=== PATIENT | male | born 1960 | race Caucasian/White ===

== ENCOUNTER → 2016-11-30 | Outpatient (CLI) | payer OTHER | END | disposition home or self-care (01) | LOC: ECT 10:57 | DX: F31.4 Bipolar disorder, current episode depressed, severe, without psychotic features (principal); I10 Essential (primary) hypertension; E78.5 Hyperlipidemia, unspecified; K22.70 Barrett's esophagus without dysplasia; M79.7 Fibromyalgia; N40.0 Benign prostatic hyperplasia without lower urinary tract symptoms; J30.9 Allergic rhinitis, unspecified; I70.0 Atherosclerosis of aorta; J45.909 Unspecified asthma, uncomplicated; I87.2 Venous insufficiency (chronic) (peripheral); M54.17 Radiculopathy, lumbosacral region; M50.30 Other cervical disc degeneration, unspecified cervical region; E03.9 Hypothyroidism, unspecified; E11.40 Type 2 diabetes mellitus with diabetic neuropathy, unspecified; Z79.82 Long term (current) use of aspirin ==

== ENCOUNTER 2016-12-02 09:35 | Outpatient (RCR) | payer OTHER ==
[~2016-12-02] VITALS: Ht 180.3 cm; Wt 69.9 kg
[~2016-12-02 09:35] MED LIST: Excedrin Migraine tab ORAL PRN
[2016-12-02] MEDS ORDERED: Methohexital Sodium Syr 100mg/10ml IVP ONE ×2 (09:36)
[2016-12-02] MEDS ORDERED: NS 550ML IV ONE ×2 (09:36)
[2016-12-02] MEDS ORDERED: Succinylcholine 20mg/ml 10ml vial ONE ×2 (09:36)
[2016-12-02] MEDS ORDERED: Midazolam 2mg/2ml Inj ONE ×2 (09:36)
[2016-12-02] MEDS ORDERED: Excedrin Migraine tab ONE ×2 (09:36)
== END 2016-12-06 | disposition home or self-care (01) ==
LOC: ECT 09:35
DX: F31.4 Bipolar disorder, current episode depressed, severe, without psychotic features (principal); I10 Essential (primary) hypertension; E11.9 Type 2 diabetes mellitus without complications; M79.7 Fibromyalgia; M54.17 Radiculopathy, lumbosacral region; M50.30 Other cervical disc degeneration, unspecified cervical region
CPT/HCPCS: 90870; J0330; J2250; J7040

== ENCOUNTER 2016-12-07 06:06 | Outpatient (RCR) | payer OTHER ==
[~2016-12-07] VITALS: Ht 180.3 cm; Wt 69.9 kg
[2016-12-07] MEDS ORDERED: Succinylcholine 20mg/ml 10ml vial ONE (06:07)
[2016-12-07] MEDS ORDERED: NS 550ML IV ONE (06:07)
[2016-12-07] MEDS ORDERED: Midazolam 2mg/2ml Inj ONE (06:07)
[2016-12-07] MEDS ORDERED: Methohexital Sodium Syr 100mg/10ml IVP ONE (06:07)
[2016-12-07] MEDS ORDERED: Excedrin Migraine tab ONE (06:07)
[2016-12-07] MEDS ORDERED: Atropine Sulfate 0.4mg/ml inj IVP PRN (09:03)
[2016-12-07] MEDS ORDERED: Excedrin Migraine tab ORAL PRN (09:03)
[2016-12-09] MEDS ORDERED: Methohexital Sodium Syr 100mg/10ml IVP ONE (06:07)
[2016-12-09] MEDS ORDERED: Midazolam 2mg/2ml Inj ONE (06:07)
[2016-12-09] MEDS ORDERED: NS 550ML IV ONE (06:07)
[2016-12-09] MEDS ORDERED: Excedrin Migraine tab ONE (06:07)
[2016-12-09] MEDS ORDERED: Succinylcholine 20mg/ml 10ml vial ONE (06:07)
[2016-12-12] MEDS ORDERED: Excedrin Migraine tab ORAL PRN (09:43)
[2016-12-12] MEDS ORDERED: Methohexital Sodium Syr 100mg/10ml IVP ONE (12:00)
[2016-12-12] MEDS ORDERED: Excedrin Migraine tab ONE (12:00)
[2016-12-12] MEDS ORDERED: Succinylcholine 20mg/ml 10ml vial ONE (12:00)
[2016-12-12] MEDS ORDERED: NS 550ML IV ONE (12:00)
[2016-12-12] MEDS ORDERED: Midazolam 2mg/2ml Inj ONE (12:00)
[2016-12-14] MEDS ORDERED: Midazolam 2mg/2ml Inj ONE (08:00)
[2016-12-14] MEDS ORDERED: Methohexital Sodium Syr 100mg/10ml IVP ONE (08:00)
[2016-12-14] MEDS ORDERED: Succinylcholine 20mg/ml 10ml vial ONE (08:00)
[2016-12-14] MEDS ORDERED: NS 550ML IV ONE (08:00)
[2016-12-14] MEDS ORDERED: Excedrin Migraine tab ONE (08:00)
[2016-12-14] MEDS ORDERED: Excedrin Migraine tab ORAL PRN (09:54)
[2016-12-16] MEDS ORDERED: Excedrin Migraine tab ONE (08:00)
[2016-12-16] MEDS ORDERED: Midazolam 2mg/2ml Inj ONE (08:00)
[2016-12-16] MEDS ORDERED: Succinylcholine 20mg/ml 10ml vial ONE (08:00)
[2016-12-16] MEDS ORDERED: NS 550ML IV ONE (08:00)
[2016-12-16] MEDS ORDERED: Methohexital Sodium Syr 100mg/10ml IVP ONE (08:00)
[2016-12-16] MEDS ORDERED: Excedrin Migraine tab ORAL PRN (12:30)
[2016-12-19] MEDS ORDERED: NS 550ML IV ONE (08:00)
[2016-12-19] MEDS ORDERED: Succinylcholine 20mg/ml 10ml vial ONE (08:00)
[2016-12-19] MEDS ORDERED: Excedrin Migraine tab ONE (08:00)
[2016-12-19] MEDS ORDERED: Methohexital Sodium Syr 100mg/10ml IVP ONE (08:00)
[2016-12-19] MEDS ORDERED: Midazolam 2mg/2ml Inj ONE (08:00)
[2016-12-19] MEDS ORDERED: Atropine Sulfate 0.4mg/ml inj IVP PRN (12:30)
[2016-12-21] MEDS ORDERED: Succinylcholine 20mg/ml 10ml vial ONE (12:30)
[2016-12-21] MEDS ORDERED: Methohexital Sodium Syr 100mg/10ml IVP ONE (12:30)
[2016-12-21] MEDS ORDERED: Midazolam 2mg/2ml Inj ONE (12:30)
[2016-12-21] MEDS ORDERED: NS 550ML IV ONE (12:30)
[2016-12-21] MEDS ORDERED: Excedrin Migraine tab ONE (12:30)
[2016-12-21] MEDS ORDERED: Atropine Sulfate 0.4mg/ml inj IVP PRN (17:30)
[2016-12-21] MEDS ORDERED: Excedrin Migraine tab ORAL PRN (17:30)
[2016-12-23] MEDS ORDERED: Methohexital Sodium Syr 100mg/10ml IVP ONE (12:30)
[2016-12-23] MEDS ORDERED: NS 550ML IV ONE (12:30)
[2016-12-23] MEDS ORDERED: Excedrin Migraine tab ONE (12:30)
[2016-12-23] MEDS ORDERED: Midazolam 2mg/2ml Inj ONE (12:30)
[2016-12-23] MEDS ORDERED: Succinylcholine 20mg/ml 10ml vial ONE (12:30)
[2016-12-26] MEDS ORDERED: Succinylcholine 20mg/ml 10ml vial ONE (06:07)
[2016-12-26] MEDS ORDERED: Midazolam 2mg/2ml Inj ONE (06:07)
[2016-12-26] MEDS ORDERED: NS 550ML IV ONE (06:07)
[2016-12-26] MEDS ORDERED: Excedrin Migraine tab ONE (06:07)
[2016-12-26] MEDS ORDERED: Methohexital Sodium Syr 100mg/10ml IVP ONE (06:07)
[2016-12-26] MEDS ORDERED: Excedrin Migraine tab ORAL PRN (09:29)
[2017-01-02] MEDS ORDERED: Excedrin Migraine tab ORAL PRN (06:00)
[2017-01-02] MEDS ORDERED: Methohexital Sodium Syr 100mg/10ml IVP ONE (12:00)
[2017-01-02] MEDS ORDERED: Midazolam 2mg/2ml Inj ONE (12:00)
[2017-01-02] MEDS ORDERED: Succinylcholine 20mg/ml 10ml vial ONE (12:00)
[2017-01-02] MEDS ORDERED: Excedrin Migraine tab ONE (12:00)
[2017-01-02] MEDS ORDERED: NS 550ML IV ONE (12:00)
== END 2017-01-03 | disposition home or self-care (01) ==
LOC: ECT 06:06
DX: F31.4 Bipolar disorder, current episode depressed, severe, without psychotic features (principal)
CPT/HCPCS: 90870; J0330; J2250; J7040

== ENCOUNTER 2017-01-16 08:41 | Outpatient (RCR) | payer OTHER ==
[~2017-01-16] VITALS: Ht 180.3 cm; Wt 69.9 kg
[2017-01-16] MEDS ORDERED: Midazolam 2mg/2ml Inj ONE (08:42)
[2017-01-16] MEDS ORDERED: Excedrin Migraine tab ONE (08:42)
[2017-01-16] MEDS ORDERED: Methohexital Sodium Syr 100mg/10ml IVP ONE (08:42)
[2017-01-16] MEDS ORDERED: NS 550ML IV ONE (08:42)
[2017-01-16] MEDS ORDERED: Succinylcholine 20mg/ml 10ml vial ONE (08:42)
[2017-01-16] MEDS ORDERED: Excedrin Migraine tab ORAL PRN ×2 (09:03→15:30)
== END 2017-02-03 | disposition home or self-care (01) ==
LOC: ECT 08:41
DX: F31.4 Bipolar disorder, current episode depressed, severe, without psychotic features (principal)
CPT/HCPCS: 90870; J0330; J2250; J7040

== ENCOUNTER 2017-02-06 08:36 | Outpatient (RCR) | payer MEDICARE, OTHER ==
[~2017-02-06] VITALS: Ht 180.3 cm; Wt 69.9 kg
[2017-02-06] MEDS ORDERED: Methohexital Sodium Syr 100mg/10ml IVP ONE (08:37)
[2017-02-06] MEDS ORDERED: Succinylcholine 20mg/ml 10ml vial ONE (08:37)
[2017-02-06] MEDS ORDERED: Excedrin Migraine tab ONE (08:37)
[2017-02-06] MEDS ORDERED: NS 550ML IV ONE (08:37)
[2017-02-06] MEDS ORDERED: Midazolam 2mg/2ml Inj ONE (08:37)
[2017-02-06] MEDS ORDERED: Excedrin Migraine tab ORAL PRN (12:30)
== END 2017-03-05 | disposition home or self-care (01) ==
LOC: ECT 08:36
DX: F31.4 Bipolar disorder, current episode depressed, severe, without psychotic features (principal)
CPT/HCPCS: 90870; J0330; J2250; J7040

== ENCOUNTER 2017-03-06 05:12 | Outpatient (RCR) | payer OTHER ==
[~2017-03-06] VITALS: Ht 180.3 cm; Wt 69.9 kg
[2017-03-06] MEDS ORDERED: Excedrin Migraine tab ONE (05:13)
[2017-03-06] MEDS ORDERED: Succinylcholine 20mg/ml 10ml vial ONE (05:13)
[2017-03-06] MEDS ORDERED: NS 550ML IV ONE (05:13)
[2017-03-06] MEDS ORDERED: Methohexital Sodium Syr 100mg/10ml IVP ONE (05:13)
[2017-03-06] MEDS ORDERED: Midazolam 2mg/2ml Inj ONE (05:13)
[2017-03-06] MEDS ORDERED: Excedrin Migraine tab ORAL PRN (08:48)
[2017-04-05] MEDS ORDERED: Midazolam 2mg/2ml Inj ONE (07:00)
[2017-04-05] MEDS ORDERED: Excedrin Migraine tab ONE (07:00)
[2017-04-05] MEDS ORDERED: Methohexital Sodium Syr 100mg/10ml IVP ONE (07:00)
[2017-04-05] MEDS ORDERED: Succinylcholine 20mg/ml 10ml vial ONE (07:00)
[2017-04-05] MEDS ORDERED: NS 550ML IV ONE (07:00)
== END 2017-04-05 | disposition home or self-care (01) ==
LOC: ECT 05:12
DX: F31.4 Bipolar disorder, current episode depressed, severe, without psychotic features (principal)
CPT/HCPCS: 90870; J0330; J2250; J7040

== ENCOUNTER 2017-05-03 05:49 | Outpatient (RCR) | payer OTHER ==
[~2017-05-03] VITALS: Ht 180.3 cm; Wt 69.9 kg
[2017-05-03] MEDS ORDERED: Succinylcholine 20mg/ml 10ml vial ONE (05:50)
[2017-05-03] MEDS ORDERED: NS 550ML IV ONE ×2 (05:50)
[2017-05-03] MEDS ORDERED: Midazolam 2mg/2ml Inj ONE (05:50)
[2017-05-03] MEDS ORDERED: Excedrin Migraine tab ONE (05:50)
[2017-05-03] MEDS ORDERED: Methohexital Sodium Syr 100mg/10ml IVP ONE (05:50)
[2017-05-03] MEDS ORDERED: Excedrin Migraine tab ORAL PRN (09:00)
== END 2017-05-05 | disposition home or self-care (01) ==
LOC: ECT 05:49
DX: F31.4 Bipolar disorder, current episode depressed, severe, without psychotic features (principal)
CPT/HCPCS: 90870; J0330; J2250; J7040

== ENCOUNTER 2017-05-31 06:32 | Outpatient (RCR) | payer OTHER ==
[~2017-05-31] VITALS: Ht 180.3 cm; Wt 70.2 kg
[2017-05-31] MEDS ORDERED: Excedrin Migraine tab ONE (06:33)
[2017-05-31] MEDS ORDERED: Succinylcholine 20mg/ml 10ml vial ONE (06:33)
[2017-05-31] MEDS ORDERED: Methohexital Sodium Syr 100mg/10ml IVP ONE (06:33)
[2017-05-31] MEDS ORDERED: NS 550ML IV ONE (06:33)
[2017-05-31] MEDS ORDERED: Midazolam 2mg/2ml Inj ONE (06:33)
[2017-05-31] MEDS ORDERED: Excedrin Migraine tab ORAL ONE (09:00)
== END 2017-06-05 | disposition home or self-care (01) ==
LOC: ECT 06:32
DX: F31.4 Bipolar disorder, current episode depressed, severe, without psychotic features (principal)
CPT/HCPCS: 90870; J0330; J2250; J7040

== ENCOUNTER 2017-06-28 05:13 | Outpatient (RCR) | payer OTHER ==
[~2017-06-28] VITALS: Ht 30.5 cm; Wt 0.5 kg
[2017-07-03] MEDS ORDERED: Midazolam 2mg/2ml Inj ONE (08:00)
[2017-07-03] MEDS ORDERED: Succinylcholine 20mg/ml 10ml vial ONE (08:00)
[2017-07-03] MEDS ORDERED: Excedrin Migraine tab ONE (08:00)
[2017-07-03] MEDS ORDERED: NS 550ML IV ONE (08:00)
[2017-07-03] MEDS ORDERED: Methohexital Sodium Syr 100mg/10ml IVP ONE (08:00)
[2017-07-03] MEDS ORDERED: Excedrin Migraine tab ORAL PRN (09:17)
== END 2017-07-06 | disposition home or self-care (01) ==
LOC: ECT 05:13
DX: F31.4 Bipolar disorder, current episode depressed, severe, without psychotic features (principal)
CPT/HCPCS: 90870; J0330; J2250; J7040

== ENCOUNTER 2017-07-31 07:14 | Outpatient (RCR) | payer MEDICARE, OTHER ==
[~2017-07-31] VITALS: Ht 180.3 cm; Wt 70.2 kg
[2017-07-31] MEDS ORDERED: Methohexital Sodium Syr 100mg/10ml IVP ONE (07:15)
[2017-07-31] MEDS ORDERED: Excedrin Migraine tab ONE (07:15)
[2017-07-31] MEDS ORDERED: Succinylcholine 20mg/ml 10ml vial ONE (07:15)
[2017-07-31] MEDS ORDERED: NS 500ML IV ONE (07:15)
[2017-07-31] MEDS ORDERED: Excedrin Migraine tab ORAL PRN (09:39)
[2017-07-31] MEDS ORDERED: Sodium Chloride 500ML 500 ML IV ONE (09:39)
== END 2017-08-05 | disposition home or self-care (01) ==
LOC: ECT 07:14
DX: F31.4 Bipolar disorder, current episode depressed, severe, without psychotic features (principal)
CPT/HCPCS: 90870; J0330; J7040